=== PATIENT | male | born 1950 | race Caucasian/White ===

== ENCOUNTER → 2019-06-15 | Outpatient (CLI) | payer MEDICARE ==
[~2019-06-15] MED LIST: Androgel5 GM; Desyrel50 MG; ERYT.5TO BOTHEYES; IBUP600 PO; LATA.005SO OD; LISI20 PO; Nexium40 MG PO; OMEP10ER PO; PRINIVIL; Percocet 5-3251 EACH PO; Zofran Odt8 MG SL
== END ==
LOC: LAB EV 12:10
DX: K21.9 Gastro-esophageal reflux disease without esophagitis (principal)
CPT/HCPCS: 87338

== ENCOUNTER 2019-08-01 08:32 | Day surgery (SDC) | payer MEDICARE ==
[~2019-08-01] VITALS: Ht 200.7 cm; Wt 91.2 kg
== END 2019-08-01 10:40 | disposition home or self-care (01) ==
LOC: ORSCSDS 08:32
PROVIDERS: Internal Medicine Gastroenterology
PROC: 0DB68ZX Excision of Stomach, Via Natural or Artificial Opening Endoscopic, Diagnostic (ICD-10-PCS; principal; 2019-08-01 09:45)
PROC: 0DB98ZX Excision of Duodenum, Via Natural or Artificial Opening Endoscopic, Diagnostic (ICD-10-PCS; principal; 2019-08-01 09:45)
PROC: 0DB58ZX Excision of Esophagus, Via Natural or Artificial Opening Endoscopic, Diagnostic (ICD-10-PCS; principal; 2019-08-01 09:45)
DX: R93.3 Abnormal findings on diagnostic imaging of other parts of digestive tract (principal); K29.80 Duodenitis without bleeding; K21.0 Gastro-esophageal reflux disease with esophagitis; R10.13 Epigastric pain; K44.9 Diaphragmatic hernia without obstruction or gangrene; I10 Essential (primary) hypertension; Z79.899 Other long term (current) drug therapy
CPT/HCPCS: 88305; 88342; J2250; J2405; J2704; J7120

== ENCOUNTER → 2020-06-18 | Outpatient (CLI) | payer MEDICARE | END | disposition home or self-care (01) | LOC: LAB 10:59 → LAB SHORT 10:59 | DX: D36.10 Benign neoplasm of peripheral nerves and autonomic nervous system, unspecified (principal) | CPT/HCPCS: 88305 ==

== ENCOUNTER 2022-04-10 12:41 | Emergency (ER) | payer MEDICARE ==
[~2022-04-10] VITALS: Ht 200.7 cm; Wt 89.4 kg
[2022-04-10] MEDS ORDERED: Voltaren100 GM TOP (15:42)
[2022-04-10] MEDS ORDERED: LIDO700A20 TOP (15:42)
== END 2022-04-10 15:52 | disposition home or self-care (01) ==
LOC: ER 12:41
DX: S16.1XXA Strain of muscle, fascia and tendon at neck level, initial encounter (principal); I10 Essential (primary) hypertension; Z91.011 Allergy to milk products; Z91.018 Allergy to other foods; Z79.899 Other long term (current) drug therapy; X58.XXXA Exposure to other specified factors, initial encounter
CPT/HCPCS: 72040; 96372; 99283-25; J1885

== ENCOUNTER 2022-05-20 15:08 | Inpatient (IN) | payer MEDICARE ==
[~2022-05-20] VITALS: Ht 200.7 cm; Wt 91.4 kg
[~2022-05-20 15:08] MED LIST changes: -ACET325 PO; -AMOCLA875 PO; -LOSA50 PO; -METO10 PO; -PREG100
[2022-05-20 15:58] LABS: BASOPHILS ABSOLUTE AUTO 0.05 K/mm3 (0.00-0.23); BASOPHILS PERCENT AUTO 1 % (0-2); EOSINOPHILS ABSOLUTE AUTO 0.03 K/mm3 (0.00-0.68); EOSINOPHILS PERCENT AUTO 0 % (0-6); Hematocrit 38.1 % (37.0-53.0); Hemoglobin 12.9 g/dL (13.5-17.5); IMMATURE GRAN ABSOLUTE AUTO 0.33 K/mm3 (0.00-0.10); IMMATURE GRAN PERCENT AUTO 3 % (0-1); LYMPHOCYTES ABSOLUTE AUTO 1.61 K/mm3 (0.84-5.20); LYMPHOCYTES PERCENT AUTO 17 % (21-46); MONOCYTES ABSOLUTE AUTO 1.04 K/mm3 (0.16-1.47); MONOCYTES PERCENT AUTO 11 % (4-13); Mean Corpuscular HGB 31.5 pg (26.0-34.0); Mean Corpuscular HGB Conc 33.9 g/dL (31.5-36.5); Mean Corpuscular Volume 93 fL (80-100); Mean Platelet Volume 10.3 fL (9.1-12.4); NEUTROPHILS ABSOLUTE AUTO 6.59 K/mm3 (1.96-9.15); NEUTROPHILS PERCENT AUTO 68 % (41-73); Platelet Count 227 K/mm3 (150-400); RDW Coefficient Variation 12.5 % (11.7-14.2); RDW Standard Deviation 42.6 fL (35.1-46.3); Red Blood Cell Count 4.09 M/mm3 (4.30-5.90); White Blood Cell Count 9.65 K/mm3 (4.00-11.30)
[2022-05-20 16:17] LABS: Albumin, Blood 3.1 g/dL (3.4-5.0); Albumin/Globulin Ratio 0.8 (0.8-1.8); Bilirubin, Total 0.6 mg/dL (0.1-1.0); Bun/Creatinine Ratio 18.7 (12.0-20.0); Calcium, Blood 8.9 mg/dL (8.5-10.1); Creatinine, Blood 0.91 mg/dL (0.60-1.20); Potassium, Blood 4.2 mmol/L (3.5-5.5); Total Protein, Blood 7.1 g/dL (6.4-8.2)
[2022-05-20] MEDS ORDERED: PREG100 (20:41)
--- NOTE | 2022-05-21 04:04 | NUR ---
2005: PT ARRIVED IN THE UNIT VIA W/C. INDEPENDENT IN ROOM. REPORTS ABD CRAMPS, / PAIN LEVEL. NPO. DENIES NAUSEA AND VOMITING. REPORTS LAST BM 05/20/22. VOIDING. AOX4. VSS. DENIES DIZZINESS, NUMBNESS AND TINGLING SENSATION. CALL LIGHT WITHIN REACH. IV FLUIDS INFUSING. ABX ADMINSITERED. WILL CONTINUE TO MONITOR.
[2022-05-21 04:11] LABS: BASOPHILS ABSOLUTE AUTO 0.03 K/mm3 (0.00-0.23); BASOPHILS PERCENT AUTO 0 % (0-2); EOSINOPHILS ABSOLUTE AUTO 0.13 K/mm3 (0.00-0.68); EOSINOPHILS PERCENT AUTO 2 % (0-6); Hematocrit 35.9 % (37.0-53.0); Hemoglobin 11.8 g/dL (13.5-17.5); IMMATURE GRAN ABSOLUTE AUTO 0.18 K/mm3 (0.00-0.10); IMMATURE GRAN PERCENT AUTO 2 % (0-1); LYMPHOCYTES ABSOLUTE AUTO 1.53 K/mm3 (0.84-5.20); LYMPHOCYTES PERCENT AUTO 19 % (21-46); MONOCYTES PERCENT AUTO 10 % (4-13); Mean Corpuscular HGB 31.1 pg (26.0-34.0); Mean Corpuscular HGB Conc 32.9 g/dL (31.5-36.5); Mean Corpuscular Volume 95 fL (80-100); Mean Platelet Volume 10.3 fL (9.1-12.4); NEUTROPHILS ABSOLUTE AUTO 5.33 K/mm3 (1.96-9.15); NEUTROPHILS PERCENT AUTO 67 % (41-73); Platelet Count 203 K/mm3 (150-400); RDW Coefficient Variation 12.5 % (11.7-14.2); RDW Standard Deviation 43.6 fL (35.1-46.3); Red Blood Cell Count 3.79 M/mm3 (4.30-5.90)
--- NOTE | 2022-05-21 04:12 | NUR ---
SHIFT SUMMARY PT ADMITTED FOR PERF DIVERTICULITIS. REPORTS SEVERE ABD CRAMPS AT THE BEGINNING OF SHIFT. MEDICATED WITH 2MG MORPHINE X 2 AND FINALLY GOT RELIEF WITH THE 2ND DOSE. PT SLEPT GOOD AFTER THAT. NPO. DENIES NAUSEA AND VOMITING. AOX4. IND IN ROOM. VOIDING. IV FLUIDS INFUSING. IV ABX ADMINSITERED. CALL LIGHT WITHIN REACH. WILL PROVIDE REPORT TO ONCOMING NURSE.
[2022-05-21 04:43] LABS: Albumin, Blood 2.7 g/dL (3.4-5.0); Anion Gap 5 mmol/L (6-16); Blood Urea Nitrogen 17 mg/dL (8-24); Bun/Creatinine Ratio 17.3 (12.0-20.0); CO2, Blood 29 mmol/L (21-32); Calcium, Blood 8.7 mg/dL (8.5-10.1); Chloride, Blood 104 mmol/L (98-108); Creatinine, Blood 0.98 mg/dL (0.60-1.20); Glomerular Filtration Rate 83 (60-); Glucose, Blood 91 mg/dL (70-99); Magnesium, Blood 2.2 mg/dL (1.6-2.4); Phosphorus, Blood 2.9 mg/dL (2.5-4.9); Potassium, Blood 4.3 mmol/L (3.5-5.5); Sodium, Blood 138 mmol/L (136-145)
--- NOTE | 2022-05-21 20:17 | NUR ---
SHIFT SUMMARY: PATIENT IS A&OX4. VS ARE WNL AND IS ON RA. HE REPORTS HAVING A HEADACHE/MIGRAINE WITH EXTREME TENDERNESS ON THE ABD. HE HAS RECIEVED PO TYLENOL WELL IV REGLAN AND ZOFRAN WHICH HELPED MAJORITY OF THE SHIFT GET RID OF THE NAUSEA AND HEADACHE. HE STILL HAS IV MORPHINE PRN WHICH HE IS ALSO AWARE OF. HE IS VOIDING AND PASSING GAS. PATIENT IS INDEP. IN THE ROOM AND CALLS APPROPRIATELY. CALL LIGHT WITHIN REACH. HE TOLERATED HIS CLEAR LIQUID TRAY AND ATE ABOUT 95% OF IT. THE PLAN IS TO CONTINUE IV ABX AND CONTINUE PAIN AND NAUSEA MANAGEMENT.
[2022-05-22 06:33] LABS: BASOPHILS ABSOLUTE AUTO 0.02 K/mm3 (0.00-0.23); BASOPHILS PERCENT AUTO 0 % (0-2); EOSINOPHILS ABSOLUTE AUTO 0.21 K/mm3 (0.00-0.68); EOSINOPHILS PERCENT AUTO 3 % (0-6); Hematocrit 35.6 % (37.0-53.0); Hemoglobin 11.5 g/dL (13.5-17.5); IMMATURE GRAN ABSOLUTE AUTO 0.12 K/mm3 (0.00-0.10); IMMATURE GRAN PERCENT AUTO 2 % (0-1); LYMPHOCYTES ABSOLUTE AUTO 1.44 K/mm3 (0.84-5.20); LYMPHOCYTES PERCENT AUTO 21 % (21-46); MONOCYTES ABSOLUTE AUTO 0.82 K/mm3 (0.16-1.47); MONOCYTES PERCENT AUTO 12 % (4-13); Mean Corpuscular HGB 30.9 pg (26.0-34.0); Mean Corpuscular HGB Conc 32.3 g/dL (31.5-36.5); Mean Corpuscular Volume 96 fL (80-100); Mean Platelet Volume 10.3 fL (9.1-12.4); NEUTROPHILS ABSOLUTE AUTO 4.18 K/mm3 (1.96-9.15); NEUTROPHILS PERCENT AUTO 62 % (41-73); Platelet Count 220 K/mm3 (150-400); RDW Coefficient Variation 12.2 % (11.7-14.2); RDW Standard Deviation 42.6 fL (35.1-46.3); Red Blood Cell Count 3.72 M/mm3 (4.30-5.90); White Blood Cell Count 6.79 K/mm3 (4.00-11.30)
--- NOTE | 2022-05-22 17:36 | NUR ---
SHIFT SUMMARY PT HAS BEEN IND IN ROOM, UP AND AMBULATING. HE DENIES PAIN DURING SHIFT, BUT HAS REPORTED SOME NAUSEA. DENIED MEDICATIONS DURING SHIFT BUT EDUCATED REGARDING MEDICATIONS AVAILABLE AND IMPORTANCE OF HELPING TO CONTROLL NAUSEA. PT AGREEABLE TO CONTINUE TAKING NAUSEA MEDS. PLAN IS TO KEEP AMBULATING PATIENT AND CONTINUE WITH IV ABX
--- NOTE | 2022-05-23 04:27 | NUR ---
VSS. PT HAD ONE BM AT THE BEGINNING OF THIS SHIFT, PASSING FLATTUS REGULARLY, VOIDING W/O DIFFICULTY. TOLLERATING PO INTAKE W/O N/V. PT SLEPT WELL T/O THE NIGHT. NO MIGRANES REPORTED TONIGHT. PLAN FOR PT TO TRANSITION TO ORAL ABX TODAY, POSSIBLE DISCHARGE. THE PATIENT IS CURRENTLY RESTING IN BED, IN NO DISTRESS, CALL LIGHT IN REACH.
[2022-05-23 04:44] LABS: BASOPHILS ABSOLUTE AUTO 0.01 K/mm3 (0.00-0.23); BASOPHILS PERCENT AUTO 0 % (0-2); EOSINOPHILS ABSOLUTE AUTO 0.18 K/mm3 (0.00-0.68); EOSINOPHILS PERCENT AUTO 3 % (0-6); Hematocrit 36.4 % (37.0-53.0); Hemoglobin 12.3 g/dL (13.5-17.5); IMMATURE GRAN ABSOLUTE AUTO 0.11 K/mm3 (0.00-0.10); IMMATURE GRAN PERCENT AUTO 2 % (0-1); LYMPHOCYTES ABSOLUTE AUTO 1.57 K/mm3 (0.84-5.20); LYMPHOCYTES PERCENT AUTO 24 % (21-46); MONOCYTES ABSOLUTE AUTO 0.71 K/mm3 (0.16-1.47); MONOCYTES PERCENT AUTO 11 % (4-13); Mean Corpuscular HGB 31.6 pg (26.0-34.0); Mean Corpuscular HGB Conc 33.8 g/dL (31.5-36.5); Mean Corpuscular Volume 94 fL (80-100); NEUTROPHILS ABSOLUTE AUTO 3.92 K/mm3 (1.96-9.15); NEUTROPHILS PERCENT AUTO 60 % (41-73); Platelet Count 237 K/mm3 (150-400); RDW Coefficient Variation 12.1 % (11.7-14.2); RDW Standard Deviation 41.5 fL (35.1-46.3); Red Blood Cell Count 3.89 M/mm3 (4.30-5.90)
[2022-05-23 05:20] LABS: Albumin, Blood 2.7 g/dL (3.4-5.0); Anion Gap 7 mmol/L (6-16); Blood Urea Nitrogen 14 mg/dL (8-24); Bun/Creatinine Ratio 14.2 (12.0-20.0); CO2, Blood 28 mmol/L (21-32); Calcium, Blood 9.2 mg/dL (8.5-10.1); Chloride, Blood 105 mmol/L (98-108); Creatinine, Blood 0.99 mg/dL (0.60-1.20); Glomerular Filtration Rate 82 (60-); Glucose, Blood 98 mg/dL (70-99); Phosphorus, Blood 2.5 mg/dL (2.5-4.9); Potassium, Blood 3.8 mmol/L (3.5-5.5); Sodium, Blood 140 mmol/L (136-145)
[2022-05-23] MEDS ORDERED: ACET325 PO (10:46)
[2022-05-23] MEDS ORDERED: AMOCLA875 PO (10:47)
[2022-05-23] MEDS ORDERED: LOSA50 PO (10:47)
[2022-05-23] MEDS ORDERED: METO10 PO (10:47)
--- NOTE | 2022-05-23 11:17 | NUR ---
DISCHARGE ALL DISCHARGE INSTRUCTIONS GONE OVER WITH PATIENT. PT HAS DENIED PAIN DURING SHIFT. AMBULATING INDEPENDENTLY IN HIS ROOM. SLIGHT NAUSEA THIS MORNING BUT HAS RESOLVED SINCE THEN. PRESCRIPTIONS FAXED TO PHARMACY. IV REMOVED PT TOLERATING WELL. DENIED FURTHER QUESTIONS, CURRENTLY AWAITING TO PICK HIM UP AND HE WILL DISCHARGE.
== END 2022-05-23 11:38 | disposition home or self-care (01) | DRG 392 ==
LOC: ER 15:08 → SURS 17:23
PROVIDERS: Physician Assistant; Surgery; ADMIT Family Medicine
DX: K57.20 Diverticulitis of large intestine with perforation and abscess without bleeding (principal); K59.00 Constipation, unspecified; I10 Essential (primary) hypertension; M54.50 Low back pain, unspecified; G89.29 Other chronic pain; K57.90 Diverticulosis of intestine, part unspecified, without perforation or abscess without bleeding; M79.2 Neuralgia and neuritis, unspecified; G43.909 Migraine, unspecified, not intractable, without status migrainosus; M53.3 Sacrococcygeal disorders, not elsewhere classified; G47.9 Sleep disorder, unspecified; L71.9 Rosacea, unspecified; Z88.8 Allergy status to other drugs, medicaments and biological substances; Z91.011 Allergy to milk products; Z91.018 Allergy to other foods; Z79.899 Other long term (current) drug therapy; Z79.2 Long term (current) use of antibiotics; Z79.811 Long term (current) use of aromatase inhibitors; Z87.81 Personal history of (healed) traumatic fracture; Z90.49 Acquired absence of other specified parts of digestive tract; Z98.890 Other specified postprocedural states
CPT/HCPCS: 36415; 74177; 80053; 80069; 83735; 85025; 96365; 96375; 99284-25; A9270; J1650; J2270; J2405; J2543; J2765; J7030; J7050; Q9967

== ENCOUNTER → 2022-05-20 | Outpatient (CLI) | payer MEDICARE ==
[~2022-05-20] MED LIST changes: +ACET325 PO; +AMOCLA875 PO; +LIDO700A20 TOP; +LOSA50 PO; +METO10 PO; +PREG100; +Voltaren100 GM TOP
[2022-05-20 11:18] LABS: BASOPHILS ABSOLUTE AUTO 0.03 K/mm3 (0.00-0.23); BASOPHILS PERCENT AUTO 0 % (0-2); EOSINOPHILS ABSOLUTE AUTO 0.05 K/mm3 (0.00-0.68); EOSINOPHILS PERCENT AUTO 1 % (0-6); Hematocrit 39.7 % (37.0-53.0); Hemoglobin 13.3 g/dL (13.5-17.5); IMMATURE GRAN ABSOLUTE AUTO 0.35 K/mm3 (0.00-0.10); IMMATURE GRAN PERCENT AUTO 3 % (0-1); LYMPHOCYTES ABSOLUTE AUTO 1.49 K/mm3 (0.84-5.20); LYMPHOCYTES PERCENT AUTO 14 % (21-46); MONOCYTES ABSOLUTE AUTO 1.06 K/mm3 (0.16-1.47); MONOCYTES PERCENT AUTO 10 % (4-13); Mean Corpuscular HGB 31.7 pg (26.0-34.0); Mean Corpuscular HGB Conc 33.5 g/dL (31.5-36.5); Mean Corpuscular Volume 95 fL (80-100); Mean Platelet Volume 10.4 fL (9.1-12.4); NEUTROPHILS ABSOLUTE AUTO 7.71 K/mm3 (1.96-9.15); NEUTROPHILS PERCENT AUTO 72 % (41-73); Platelet Count 230 K/mm3 (150-400); RDW Coefficient Variation 12.7 % (11.7-14.2); RDW Standard Deviation 43.8 fL (35.1-46.3); White Blood Cell Count 10.69 K/mm3 (4.00-11.30)
[2022-05-20 11:27] LABS: Albumin, Blood 3.2 g/dL (3.4-5.0); Albumin/Globulin Ratio 0.7 (0.8-1.8); Bilirubin, Total 0.8 mg/dL (0.1-1.0); Bun/Creatinine Ratio 18.8 (12.0-20.0); Calcium, Blood 8.9 mg/dL (8.5-10.1); Creatinine, Blood 0.96 mg/dL (0.60-1.20); Globulin, Blood 4.3 g/dL (2.2-4.0); Potassium, Blood 4.4 mmol/L (3.5-5.5); Total Protein, Blood 7.5 g/dL (6.4-8.2)
== END | disposition home or self-care (01) ==
LOC: LAB SHORT 11:13
PROVIDERS: Physician Assistant
DX: R10.32 Left lower quadrant pain (principal)
CPT/HCPCS: 80053; 85025

== ENCOUNTER 2022-07-29 09:45 | Day surgery (SDC) | payer OTHER ==
[~2022-07-29] VITALS: Ht 200.7 cm; Wt 88.3 kg
[~2022-07-29 09:45] MED LIST changes: +ACET325 PO; +AMOCLA875 PO; +LOSA50 PO; +METO10 PO; +PREG100
[2022-07-29] MEDS ORDERED: GABA100 (10:04)
[2022-07-29] MEDS ORDERED: ASPI81CH (10:05)
== END 2022-07-29 11:56 | disposition home or self-care (01) ==
LOC: ORSCSDS 09:45
PROVIDERS: Surgery
PROC: 0DBN8ZX Excision of Sigmoid Colon, Via Natural or Artificial Opening Endoscopic, Diagnostic (ICD-10-PCS; principal; 2022-07-29 11:00)
DX: K57.20 Diverticulitis of large intestine with perforation and abscess without bleeding (principal); Z86.010 Personal history of colon polyps; I10 Essential (primary) hypertension; Z79.899 Other long term (current) drug therapy
CPT/HCPCS: 88305; J2704; J7120

== ENCOUNTER → 2022-07-30 | Outpatient (CLI) | payer OTHER ==
[~2022-07-30] MED LIST changes: +ASPI81CH; +GABA100
== END | disposition home or self-care (01) ==
LOC: LAB SHORT 15:51 → LAB 15:51
DX: R82.90 Unspecified abnormal findings in urine (principal)
CPT/HCPCS: 87077; 87086; 87186

== ENCOUNTER → 2024-05-21 | Outpatient (CLI) | payer OTHER | END | disposition home or self-care (01) | LOC: LAB SHORT 12:38 → LAB 12:38 | DX: R39.15 Urgency of urination (principal) | CPT/HCPCS: 87086 ==